=== PATIENT | male | born 1970 | race Caucasian/White ===

== ENCOUNTER 2016-12-19 23:53 | Emergency (ER) | payer MEDICAID, OTHER ==
[~2016-12-19] VITALS: Ht 162.6 cm; Wt 95.0 kg
[2016-12-19 23:57] VITALS: Ht 162.6 cm; Wt 95.0 kg
[2016-12-20 00:29] LABS: ADD SCAN DIFF NO
[2016-12-20 00:34] LABS: BASOPHILS % 0.3 % (0.0-2.0); EOSINOPHILS # 0.1 10^3/ul (0.0-0.5); HEMATOCRIT 44.2 % (42.0-52.0); HEMOGLOBIN 15.5 g/dl (14.0-18.0); LYMPHOCYTES # 4.7 10^3/ul (0.8-2.9); LYMPHOCYTES % 44.4 % (15.0-51.0); MEAN CORPUSCULAR HEMOGLOBIN 29.5 pg (29.0-33.0); MEAN CORPUSCULAR HGB CONC 35.1 g/dl (32.0-37.0); MEAN PLATELET VOLUME 10.4 fl (7.4-10.4); MONOCYTE # 0.9 10^3/ul (0.3-0.9); MONOCYTES % 8.1 % (0.0-11.0); NEUTROPHIL # 4.8 10^3/ul (1.6-7.5); PLATELET COUNT 262 10^3/UL (140-415); RED BLOOD COUNT 5.26 10^6/ul (4.70-6.10); RED CELL DISTRIBUTION WIDTH 12.7 % (11.5-14.5); WHITE BLOOD COUNT 10.5 10^3/ul (4.8-10.8)
[2016-12-20] MEDS ORDERED: ATEN50TA PO (00:41)
[2016-12-20] MEDS ORDERED: HYD25 PO (00:41)
[2016-12-20 00:49] LABS: INR 0.95; PARTIAL THROMBOPLASTIN TIME 27.6 Sec (25.0-35.0); PROTIME 12.7 Sec (12.2-14.2)
--- NOTE | 2016-12-20 00:50 | RADRPT ---
PROCEDURE: XR Chest. CLINICAL INDICATION: Chest pain. TECHNIQUE: Portable AP semi erect view of the chest was obtained. COMPARISON: None. FINDINGS: The cardiomediastinal silhouette is within normal limits. The lungs are clear. There is no evidenc e for pleural effusion, pneumothorax or pulmonary vascular congestion. The osseous structures are i ntact with no evidence for acute abnormality. RPTAT:HJJR IMPRESSION: No evidence for acute intrathoracic pathology. Physician Lizzy Date Time Electronically viewed and signed by Davion Degroot Physician on 12/20/2016 00:50 JR/
[2016-12-20 00:51] LABS: ALANINE AMINOTRANSFERASE 37 IU/L (13-69); ALBUMIN 4.5 g/dl (3.3-4.9); ALBUMIN/GLOBULIN RATIO 1.32; ALKALINE PHOSPHATASE 101 IU/L (42-121); ANION GAP 17 (8-16); ASPARTATE AMINO TRANSFERASE 24 IU/L (15-46); BILIRUBIN,INDIRECT 0.8 mg/dl (0-1.1); BILIRUBIN,TOTAL 0.8 mg/dl (0.2-1.3); BLOOD UREA NITROGEN 23 mg/dl (7-20); CALCIUM 9.5 mg/dl (8.4-10.2); CARBON DIOXIDE 22 mmol/L (21-31); CHLORIDE 100 mmol/L (97-110); GLUCOSE 149 mg/dl (70-220); POTASSIUM 3.4 mmol/L (3.5-5.1); SODIUM 136 mmol/L (135-144); TOTAL PROTEIN 7.9 g/dl (6.1-8.1)
[2016-12-20 00:59] LABS: B-TYPE NATRIURETIC PEPTIDE 72 PG/ML (0-125)
[2016-12-20 01:18] LABS: TROPONIN-I < 0.012 ng/ml (0.00-0.12)
[2016-12-20] MEDS ORDERED: IBUP800T25 PO (02:26)
--- NOTE | 2016-12-20 02:27 | ERD ---
ER Documentation Chief Complaint Date/Time DATE: 12/20/16 TIME: 02:26 Chief Complaint chest pain w/ sob since 4 hours ago HPI Is a 38-year-old male chest pain with shortness of breath since 4 hours ago. Shortness breath is related to anxiety for the patient. Chest pain is reproducible left-sided chest pain that radiates up to his neck. No fevers no chills. No diaphoresis. Patient has similar episode was at [facility] and was discharged home until the cardiac chest pain. He said the pain went away but came back today after he lifted something heavy. Pain is mild to moderate intensity, reproducible, worse with motion. ROS All systems reviewed and are negative except as per history of present illness. Medications Home Meds Active Scripts Ibuprofen* (Motrin*) 800 Mg Tab, 800 MG PO Q6, #30 TAB Prov:MATEO SUERO 12/20/16 Reported Medications Hydrochlorothiazide* (Hydrochlorothiazide*) 25 Mg Tab, 25 MG PO DAILY for ELEVATED BLOOD PRESSURE, #30 TAB 12/20/16 Atenolol* (Atenolol*) 50 Mg Tablet, 50 MG PO DAILY for ELEVATED BLOOD PRESSURE, #30 TAB 12/20/16 Allergies Allergies: Coded Allergies: No Known Allergy (Unverified , 12/20/16) PMhx/Soc Medical and Surgical Hx: pt denies Surgical Hx Hx Cardiac Disorders: Yes (htn) Hx Alcohol Use: No Hx Substance Use: No Hx Tobacco Use: No Smoking Status: Unknown if ever smoked Physical Exam Vitals Vital Signs Date Time Temp Pulse Resp B/P Pulse Ox O2 Delivery O2 Flow Rate FiO2 12/20/16 01:00 72 18 135/69 98 Room Air 12/20/16 00:13 73 18 153/90 100 Room Air 12/19/16 23:57 98.4 87 20 184/89 100 Physical Exam Const: [] Head: Atraumatic Eyes: Normal Conjunctiva ENT: Normal External Ears, Nose and Mouth. Neck: Full range of motion..~ No meningismus. Resp: Clear to auscultation bilaterally Cardio: Regular rate and rhythm, no murmurs Abd: Soft, non tender, non distended. Normal bowel sounds Skin: No petechiae or rashes Back: No midline or flank tenderness Ext: No cyanosis, or edema Neur: Awake and alert Psych: Normal Mood and Affect Result Diagram: 12/20/16 0014 12/20/16 0014 Results 24 hrs Laboratory Tests Test 12/20/16 00:14 White Blood Count 10.510^3/ul Red Blood Count 5.2610^6/ul Hemoglobin 15.5g/dl Hematocrit 44.2% Mean Corpuscular Volume 84.0fl Mean Corpuscular Hemoglobin 29.5pg Mean Corpuscular Hemoglobin Concent 35.1g/dl Red Cell Distribution Width 12.7% Platelet Count 77383^3/UL Mean Platelet Volume 10.4fl Neutrophils % 46.0% Lymphocytes % 44.4% Monocytes % 8.1% Eosinophils % 1.0% Basophils % 0.3% Nucleated Red Blood Cells % 0.0/100WBC Neutrophils # 4.810^3/ul Lymphocytes # 4.710^3/ul Monocytes # 0.910^3/ul Eosinophils # 0.110^3/ul Basophils # 0.010^3/ul Nucleated Red Blood Cells # 0.010^3/ul Prothrombin Time 12.7Sec Prothrombin Time Ratio 1.0 INR International Normalized Ratio 0.95 Activated Partial Thromboplast Time 27.6Sec Sodium Level 136mmol/L Potassium Level 3.4mmol/L Chloride Level 100mmol/L Carbon Dioxide Level 22mmol/L Anion Gap 17 Blood Urea Nitrogen 23mg/dl Creatinine 0.90mg/dl Glucose Level 149mg/dl Calcium Level 9.5mg/dl Total Bilirubin 0.8mg/dl Direct Bilirubin 0.00mg/dl Indirect Bilirubin 0.8mg/dl Aspartate Amino Transf (AST/SGOT) 24IU/L Alanine Aminotransferase (ALT/SGPT) 37IU/L Alkaline Phosphatase 101IU/L Troponin I < 0.012ng/ml B-Type Natriuretic Peptide 72PG/ML Total Protein 7.9g/dl Albumin 4.5g/dl Globulin 3.40g/dl Albumin/Globulin Ratio 1.32 Procedures/MDM EKG: Rate/Rhythm: Normal Sinus Rhythm QRS, ST, T-waves: No changes consistent w/ acute ischemia Impression: No evidence of ischemia or arrhythmia Chest X-ray 1V Interpreted by me: Soft Tissue: No acute abnormalities Bones: No acute abnormalities Mediastinum/Cardiac Silhouette/Lungs: No acute abnormalities Patient's thoracic symptoms have stabilized while in the department and are stable for outpatient follow up. Exam and work up not consistent w/ ischemia, arrhythmia, PE or dissection. Departure Diagnosis: Primary Impression: Chest pain Chest pain type: other chest pain Qualified Code: R07.89 - Other chest pain Condition: Stable Patient Instructions: Chest Pain, Uncertain Cause MATEO SUERO December 20, 2016 02:27
[2016-12-20 02:50] VITALS: BP 135/84; PULSE 62; RESP 16; TEMP 98.2
== END 2016-12-20 02:51 | disposition home or self-care (01) ==
LOC: E/R 23:53
DX: R07.89 Other chest pain (principal); I10 Essential (primary) hypertension
CPT/HCPCS: 36415; 71010; 80053; 83880; 84484; 85025; 85610; 85730; 93005; Z7502